=== PATIENT | female | born 1990 | race Hispanic/Latino ===

== ENCOUNTER 2020-03-06 18:49 | Emergency (ER) | payer OTHER, MEDICAID, SELFPAY ==
[2020-03-06] VITALS (7 sets, daily range): BP systolic 108–142; BP diastolic 60–82; PULSE 80–105; RESP 14–27; TEMP 37.3; O2SAT 98–100; BMI 27.7
--- NOTE | 2020-03-06 19:37 | ED_ITS ---
HPI - General Adult General Chief complaint: Abdominal Pain Stated complaint: RIGHT SIDE PAIN Time Seen by Provider: 03/06/20 19:00 Source: patient Mode of arrival: Ambulatory Limitations: no limitations History of Present Illness HPI narrative: 29-year-old female here for evaluation of right-sided adnexal pain. Patient states that approximately 2 weeks ago she started have menstrual bleeding in his bleeding daily basis since then. She has an inplanon in place since last year and has not had a menstrual cycle since then. He states that 4 days ago she started having heavier bleeding compared with the 10 days prior to that and at the same time started to have right-sided adnexal pain. Some nausea but no vomiting. No fevers. No urinary symptoms. No changes in bowel habits. No prior abdominal surgeries. Related Data Previous Rx's Medication Instructions Recorded doxycycline hyclate 100 mg PO BID #14 cap 04/21/16 hydrocodone-acetaminophen 0 tab PO Q4HP PRN #30 04/21/16 ibuprofen 600 mg PO Q6HP PRN #30 tab 04/21/16 metronidazole [Flagyl] 500 mg PO TID #30 tab 04/21/16 ciprofloxacin HCl [Cipro] 500 mg PO BID #20 tab 08/28/16 ondansetron [Zofran ODT] 4 mg SUBLINGUAL Q6HP PRN #20 odt 08/28/16 Allergies Allergy/AdvReac Type Severity Reaction Status Date / Time morphine [MORPHINE] Allergy Unknown ONE TIME Unverified 10/01/17 12:26 I FELT LIKE I COULDN'T BREATHE seafood Allergy Mild Uncoded 03/06/20 21:07 ACIDIC FRUITS Allergy Unknown Uncoded 10/01/17 12:26 Review of Systems Constitutional Constitutional: Denies fatigue and Denies fever(s) Cardiovascular Cardiovascular: Denies chest pain and Denies dyspnea Respiratory Respiratory: Denies dyspnea Gastrointestinal Gastrointestinal: Denies change in bowel habits, Reports nausea and Denies vomiting Genitourinary Genitourinary: Denies dysuria and Denies urinary hesitancy Genitourinary: Denies dysuria, Reports pelvic pain (Right-sided), Denies urinary hesitancy, Reports vaginal discharge (Bloody) and Denies vaginal dryness Musculoskeletal Musculoskeletal: Denies myalgias Integumentary/Breasts Skin/Breast: Denies rash Neurologic Neurologic: Denies behavioral changes Psychiatric Psychiatric: Denies behavioral changes Endocrine Endocrine: Denies fatigue Hematologic/Lymphatic Hematologic/Lymphatic: Denies easy bleeding and Denies easy bruising Allergic/Immunologic Allergic/Immunologic: Denies urticaria Patient History Medical History Bacterial vaginosis (Inactive) Pelvic inflammatory disease (Inactive) Pyelonephritis (Inactive) Urinary tract infection (Inactive) Surgical History (Updated 03/07/20 @ 02:30 by David Culver DO) History of cholecystectomy (Inactive) Social History Smoking Status: Former smoker Smoking Status: Former smoker Substance Use Type: does not use Exam Initial Vital Signs Initial Vital Signs: Vital Signs Pulse Rate 95 H 03/06/20 18:59 Respiratory Rate 19 03/06/20 18:59 Pulse Oximetry 99 03/06/20 18:59 Const General: cooperative and comfortable Limitations: mental status not altered HENMT Head: normal to inspection and normocephalic Resp Effort & Inspection: normal respiratory effort Cardio Rate: regular rate GI Inspection: non-distended Palpation: soft and tender (Right adnexa) External Female Exam: normal external appearance Speculum Exam - Vagina: vaginal bleeding Speculum Exam - Cervix: normal appearance of the cervix OB/External & Speculum: vaginal bleeding Skin Lesions: no lesions Rashes: no rashes Neuro General: patient alert and patient awake Cognition: normal cognition Speech: speech normal Extrem General: normal to inspection and capillary refill normal Psych Appearance: grossly normal and well kempt Course Orders Ordered: ED Orders 03/06/20 19:10 Complete Blood Count AUTO DIFF Stat Comprehensive Metabolic Panel Stat Lipase Stat Test Serum,Qual Stat 03/06/20 19:38 US pelvic complete Stat 03/06/20 21:45 Urinalysis and Microscopic Stat Discontinued Medications Sodium Chloride (Normal Saline 0.9%) 1,000 mls @ 1,000 mls/hr IV BOLUS ONE Stop: 03/06/20 20:52 Last Infusion: 03/06/20 21:07 Dose: 0 mls/hr Documented by: Admin: 03/06/20 20:01 Dose: 1,000 mls/hr Documented by: ALEYDA Ondansetron HCl (Zofran) 4 mg IV NOW ONE Stop: 03/06/20 20:58 Last Admin: 03/06/20 21:07 Dose: 4 mg Documented by: ALEYDA Vital Signs Vital signs: Vital Signs - 8 hr 03/06/20 18:59 03/06/20 19:00 03/06/20 19:21 Temperature 99.2 F Pulse Rate 95 H 105 H 96 H Respiratory Rate 19 20 14 Blood Pressure 142/82 H 129/81 Pulse Oximetry 99 99 99 03/06/20 19:30 03/06/20 20:00 03/06/20 20:30 Temperature Pulse Rate 83 90 80 Respiratory Rate 21 21 18 Blood Pressure 116/73 108/60 Pulse Oximetry 99 98 100 03/06/20 21:00 Temperature Pulse Rate 101 H Respiratory Rate 27 H Blood Pressure 119/71 Pulse Oximetry 100 Medical Decision Making Lab Data Lab results reviewed: Yes I reviewed the patient's lab results. Result diagrams: 03/06/20 19:10 03/06/20 19:10 Labs: Lab Results 03/06/20 03/06/20 03/06/20 Range/Units 19:10 19:10 19:10 WBC 7.9 (4.5-11.0) X10^3/uL RBC 4.72 (4.0-5.2) X10^6/uL Hgb 13.7 (12.0-16.0) g/dL Hct 39.5 (36-46) % MCV 83.8 (80-100) fL MCH 29.0 (26-34) PG MCHC 34.6 (30-36) % RDW 13.1 (11.6-14.8) % Plt Count 238 (150-400) X10^3/uL Neut % (Auto) 65.2 (50-75) % Lymph % (Auto) 28.2 (25-40) % [place] % (Auto) 5.0 (3-14) % Eos % (Auto) 1.3 L (2-4) % Baso % (Auto) 0.3 (0-2) % Neut # (Auto) 5100 (0418-5045) /uL Lymph # (Auto) 2200 (5664-1483) /uL Bladen # (Auto) 400 (0-900) /uL Eos # (Auto) 100 (0-450) /uL Baso # (Auto) 0 (0-100) /uL Sodium 141 (137-145) mmol/L Potassium 3.7 (3.4-5.1) mmol/L Chloride 106 (98-107) mmol/L Carbon Dioxide 23 (22-32) mmol/L BUN 16 (7-17) mg/dL Creatinine 0.62 (0.52-1.04) mg/dL Estimated GFR > 60.0 (>60) mL/min BUN/Creatinine Ratio 25.8 H (6-22) Glucose 86 (70-100) mg/dL Calcium 9.4 (8.4-10.2) mg/dL Total Bilirubin 0.8 (0.2-1.3) mg/dL AST 24 (14-36) IU/L ALT 16 (<35) IU/L Alkaline Phosphatase 62 (38-126) U/L Total Protein 8.2 (6.3-8.2) g/dL Albumin 4.6 (3.5-5.0) g/dL Globulin 3.6 (1.7-4.1) g/dL Albumin/Globulin Ratio 1.3 (1.0-2.8) Lipase 62 (23-300) U/L Serum , Qual Negative (Negative) Urine Color Urine Appearance Urine pH (4.5-8.0) Ur Specific [place] (1.000-1.035) Urine Protein (Negative) Urine Glucose (UA) (Negative) g/dL Urine Ketones (NEGATIVE) Urine Occult Blood (Negative) Urine Nitrate (Negative) Urine Bilirubin (NEGATIVE) Urine Urobilinogen (0.2) E.U./dL Ur Leukocyte Esterase (NEGATIVE) Urine RBC (0-5/HPF) Urine WBC (0-5/HPF) Ur Squamous Epith Cells (0-5/HPF) Urine Bacteria (None) Urine Mucus (Negative) Ur Culture Indicated? 03/06/20 Range/Units 21:45 WBC (4.5-11.0) X10^3/uL RBC (4.0-5.2) X10^6/uL Hgb (12.0-16.0) g/dL Hct (36-46) % MCV (80-100) fL MCH (26-34) PG MCHC (30-36) % RDW (11.6-14.8) % Plt Count (150-400) X10^3/uL Neut % (Auto) (50-75) % Lymph % (Auto) (25-40) % [place] % (Auto) (3-14) % Eos % (Auto) (2-4) % Baso % (Auto) (0-2) % Neut # (Auto) (7120-2541) /uL Lymph # (Auto) (2854-9181) /uL [place]aden # (Auto) (0-900) /uL Eos # (Auto) (0-450) /uL Baso # (Auto) (0-100) /uL Sodium (137-145) mmol/L Potassium (3.4-5.1) mmol/L Chloride (98-107) mmol/L Carbon Dioxide (22-32) mmol/L BUN (7-17) mg/dL Creatinine (0.52-1.04) mg/dL Estimated GFR (>60) mL/min BUN/Creatinine Ratio (6-22) Glucose (70-100) mg/dL Calcium (8.4-10.2) mg/dL Total Bilirubin (0.2-1.3) mg/dL AST (14-36) IU/L ALT (<35) IU/L Alkaline Phosphatase (38-126) U/L Total Protein (6.3-8.2) g/dL Albumin (3.5-5.0) g/dL Globulin (1.7-4.1) g/dL Albumin/Globulin Ratio (1.0-2.8) Lipase (23-300) U/L Serum , Qual (Negative) Urine Color Yellow Urine Appearance Clear Urine pH 5.5 (4.5-8.0) Ur Specific [place] 1.025 (1.000-1.035) Urine Protein Negative (Negative) Urine Glucose (UA) Negative (Negative) g/dL Urine Ketones 2+ H (NEGATIVE) Urine Occult Blood 3+ H (Negative) Urine Nitrate Negative (Negative) Urine Bilirubin Negative (NEGATIVE) Urine Urobilinogen 0.2 (0.2) E.U./dL Ur Leukocyte Esterase Negative (NEGATIVE) Urine RBC 1-5/hpf (0-5/HPF) Urine WBC None seen (0-5/HPF) Ur Squamous Epith Cells 1-5 /hpf (0-5/HPF) Urine Bacteria Few (2-10) H (None) Urine Mucus 1+ H (Negative) Ur Culture Indicated? 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 PROCEDURE: US PELVIC COMPLETE INDICATIONS: Right adnexal pain eval for ovarian pathology TECHNIQUE: Real-time scanning was performed of the pelvic organs, with image documentation. Additional endovaginal scanning was necessary due to incomplete visualization of the adnexal and endometrial structures by transabdominal scanning. COMPARISON: [facility], , PELVIC COMPLETE, 08/31/2013, 6:35. FINDINGS: Transabdominal scanning: Limited scanning through the kidneys shows no hydronephrosis. No pathologic free abdominal or pelvic fluid. Endovaginal scanning: Uterus: Uterus is normal in size at 7.8 x 3.6 x 4.9 cm. The endometrium measures 2 mm in combined thickness. Ovaries: Right ovary measures 3.2 x 1.2 x 2.1 cm. Left ovary measures 4.8 x 4.0 x 3.8 cm. There there are proximally for left-sided ovarian simple cysts with the largest measuring approximately 4.4 cm in diameter. There is vascular flow identified in the bilateral ovaries. No suspicious solid ovarian/adnexal mass lesions. IMPRESSION: 1. A simple appearing 4.4 cm left ovarian cyst. No sonographic evidence for ovarian torsion in either ovary. No suspicious ovarian or adnexal mass lesions. 2. Normal appearance of the uterus. Dictated by: Fabricio Perea M.D. on 03/06/2020 at 21:59 Approved by: Fabricio Perea M.D. on 03/06/2020 at 22:02 ECG Data Attestation: I personally reviewed and interpreted this ECG as follows: Prior ECG tracings: not available for review Interpretation: Sinus rhythm Ventricular rate 88 Normal axis Normal QRS Normal QTC No ST T wave changes MDM Narrative Medical decision making narrative: Patient does have a relatively benign exam. Her pelvic ultrasound shows no right-sided ovarian pathology. No signs of torsion. Patient states she is not concerned about any sexually transmitted infections. She states that she was concerned about the potential retained tampon. Pelvic exam does not reveal any retained tampon. She does have vaginal bleeding. Her right-sided abdominal pain his adnexal. Considered other etiologies such as appendicitis however I feel given her presentation that we should hold on CT scan for now. I did inform the patient of this. We did discuss return precautions. Will hold on antibiotics. From her that she should contact her primary doctor about potentially starting other oral hormone regulation medications to help with the vaginal bleeding that she is currently having. If she does return to the emergency department with continued pain at would consider performing a CT scan for further evaluation. Patient expressed understanding and agreement. Discharge Plan Departure Patient Disposition: Home Clinical Impression: Pelvic pain, Abnormal vaginal bleeding Discharge Date/Time: 03/06/20 23:37 Instructions: DI for Vaginal Bleeding Activity Restrictions/Additional Instructions: Recommend that tomorrow you contact your primary provider to schedule follow-up appointment to discuss with potentially changing her control medications. Until then return to the emergency department if you start getting lightheaded, chest pain, abdominal pain changes or worsens, fevers, or any other new or worsening symptoms Prescriptions: No Action doxycycline hyclate 100 MG capsule 100 mg PO BID Qty: 14 RF: 0 hydrocodone-acetaminophen 5 MG/325 MG tablet 0 tab PO Q4HP PRNQty: 30 RF: 0 ibuprofen 600 MG tablet 600 mg PO Q6HP PRNQty: 30 RF: 2 metronidazole [Flagyl] 500 MG tablet 500 mg PO TID Qty: 30 RF: 0 ciprofloxacin HCl [Cipro] 500 MG tablet 500 mg PO BID Qty: 20 RF: 0 ondansetron [Zofran ODT] 4 MG tablet,disintegrating 4 mg Sublingual Q6HP PRNQty: 20 RF: 0 Referrals: Chau Smith MD [Primary Care Provider] -
[2020-03-06 19:55] LABS: Add Manual Diff / Slide Review NO; Basophils Absolute Auto 0 /uL (0-100); Basophils Percent Auto 0.3 % (0-2); Eosinophils Absolute Auto 100 /uL (0-450); Eosinophils Percent Auto 1.3 % (2-4); Hematocrit 39.5 % (36-46); Hemoglobin 13.7 g/dL (12.0-16.0); Lymphocytes Absolute Auto 2200 /uL (1100-4500); Lymphocytes Percent Auto 28.2 % (25-40); Mean Corpuscular HGB Conc 34.6 % (30-36); Mean Corpuscular Volume 83.8 fL (80-100); Monocytes Absolute Auto 400 /uL (0-900); Neutrophils Absolute Auto 5100 /uL (1500-7000); Neutrophils Percent Auto 65.2 % (50-75); Platelet Count 238 X10^3/uL (150-400); Red Blood Cell Count 4.72 X10^6/uL (4.0-5.2); Red Cell Distribution Width 13.1 % (11.6-14.8); White Blood Cell Count 7.9 X10^3/uL (4.5-11.0)
[2020-03-06 20:00] LABS: Alanine Aminotransferase 16 IU/L (<35); Albumin 4.6 g/dL (3.5-5.0); Albumin Globulin Ratio 1.3 (1.0-2.8); Alkaline Phosphatase 62 U/L (38-126); Aspartate Aminotransferase 24 IU/L (14-36); BUN Creatinine Ratio 25.8 (6-22); Bilirubin Total 0.8 mg/dL (0.2-1.3); Blood Urea Nitrogen 16 mg/dL (7-17); Calcium 9.4 mg/dL (8.4-10.2); Carbon Dioxide 23 mmol/L (22-32); Chloride 106 mmol/L (98-107); Estimated Glomerular Filt Rate > 60.0 mL/min (>60); Globulin 3.6 g/dL (1.7-4.1); Glucose 86 mg/dL (70-100); HEMOLYSIS < 15 (0-50); Lipase 62 U/L (23-300); Potassium 3.7 mmol/L (3.4-5.1); Sodium 141 mmol/L (137-145); Total Protein 8.2 g/dL (6.3-8.2)
[2020-03-06] MEDS: SODIUM CHLORIDE 0.9% 1,000 ML 1000 ML IV (20:01)
[2020-03-06 20:07] LABS: Pregnancy Test Serum,Qual Negative (Negative)
[2020-03-06] MEDS: ONDANSETRON 4 MG/2 ML INJ IV (21:07)
[2020-03-06 22:36] LABS: WBC Urine None Seen (0-5/HPF)
[2020-03-06 22:48] LABS: Appearance Urine UA CLEAR; Bilirubin Urine UA NEGATIVE (NEGATIVE); Color Urine UA YELLOW; Glucose Urine UA NEGATIVE (Negative); Ketones Urine UA 2+ (NEGATIVE); Leukocyte Esterase Urine UA NEGATIVE (NEGATIVE); Nitrite Urine UA NEGATIVE (Negative); Occult Blood Urine UA 3+ (Negative); Protein Urine UA NEGATIVE (Negative); Specific Gravity Urine UA 1.025 (1.000-1.035); Urobilinogen Urine UA 0.2 E.U./dL (0.2)
[2020-03-06 22:50] LABS: pH Urine UA 5.5 (4.5-8.0)
[2020-03-06 23:05] LABS: Bacteria Urine Few (2-10); Mucus Urine 1+ (Negative); RBC Urine 1-5/HPF (0-5/HPF); Squamous Epithelial Cell Urine 1-5 /HPF (0-5/HPF)
[2020-03-06 23:06] LABS: Culture Indicated Urine Cult Not Indicated
== END 2020-03-06 23:37 | disposition home or self-care (01) ==
PROVIDERS: Emergency Provider Emergency Medicine; Family Provider Family Medicine; PCP Family Medicine
DX: R10.2 Pelvic and perineal pain (principal); N93.9 Abnormal uterine and vaginal bleeding, unspecified
CPT/HCPCS: 36415; 76856; 80053; 81001; 83690; 84703; 85025; 93005; 93010; 96361; 96374; 99284; J2405

== ENCOUNTER 2020-06-23 12:41 | Emergency (ER) | payer OTHER, MEDICAID, SELFPAY ==
[2020-06-23 12:44] VITALS: BP 120/68; PULSE 80; RESP 14; TEMP 36.7; O2SAT 99
--- NOTE | 2020-06-23 14:52 | PC.NURSE ---
Patient reports think tampon might be stuck in me, I can't see the string. Patient states put tampon in yesterday evening, but was drinking for New Years and can't remember if I took it out. Patient denies bleeding or pain.
--- NOTE | 2020-06-23 15:11 | ED_ITS ---
HPI - Female Genitourinary General Chief complaint: Vaginal Bleeding Stated complaint: Can't Find Tampon Time Seen by Provider: 06/23/20 14:45 Source: patient Mode of arrival: Ambulatory Limitations: no limitations History of Present Illness HPI Narrative: 29F former smoker with noncontributory medical history presents with a chief complaint of a concern that she may have left a tampon in. She has no symptoms whatsoever other than some mild, dark vaginal bleeding which is normal for her menstrual cycle. She denies any pain, discharge nor fever or chills. The last time she remembers changing a tampon was yesterday. She is unable to check herself because her fingernails or so long. She asked her to check he was unable to see anything. She is otherwise well and free of complaint MD Complaint: other Onset (ago): hour(s) Vaginal discharge: dark blood Patient : No Related Data Previous Rx's Medication Instructions Recorded doxycycline hyclate 100 mg PO BID #14 cap 04/21/16 hydrocodone-acetaminophen 0 tab PO Q4HP PRN #30 04/21/16 ibuprofen 600 mg PO Q6HP PRN #30 tab 04/21/16 metronidazole [Flagyl] 500 mg PO TID #30 tab 04/21/16 ciprofloxacin HCl [Cipro] 500 mg PO BID #20 tab 08/28/16 ondansetron [Zofran ODT] 4 mg SUBLINGUAL Q6HP PRN #20 odt 08/28/16 Allergies Allergy/AdvReac Type Severity Reaction Status Date / Time morphine [MORPHINE] Allergy Unknown ONE TIME Unverified 10/01/17 12:26 I FELT LIKE I COULDN'T BREATHE seafood Allergy Mild Uncoded 03/06/20 21:07 ACIDIC FRUITS Allergy Unknown Uncoded 10/01/17 12:26 Review of Systems Constitutional Constitutional: Denies chills, Denies fatigue, Denies fever(s), Denies frequent falls, Denies lethargy and Denies weakness Eyes Eyes: Denies change in vision, Denies eye discharge, Denies irritation and Denies loss of vision ENT Ears, Nose, Mouth, and Throat: Denies change in voice, Denies dizziness, Denies neck pain, Denies sore throat and Denies throat swelling Cardiovascular Cardiovascular: Denies chest pain, Denies irregular heart rhythm, Denies lightheadedness, Denies palpitations, Denies dyspnea, Denies dyspnea on exertion and Denies orthopnea Respiratory Respiratory: Denies cough, Denies dyspnea, Denies dyspnea on exertion and Denies wheezing Gastrointestinal Gastrointestinal: Denies abdominal pain, Denies change in bowel habits, Denies diarrhea, Denies nausea and Denies vomiting Genitourinary Comments: mild vaginal bleeding Musculoskeletal Musculoskeletal: Denies neck pain and Denies numbness Integumentary/Breasts Skin/Breast: Denies pruritus, Denies erythema, Denies rash and Denies wounds Neurologic Neurologic: Denies behavioral changes, Denies confusion, Denies dizziness, Denies frequent falls, Denies loss of vision, Denies numbness and Denies weakness Psychiatric Psychiatric: Denies anxiety, Denies behavioral changes, Denies confusion, Denies depression, Denies homicidal ideation and Denies suicidal ideation Endocrine Endocrine: Denies fatigue, Denies flushing and Denies palpitations Hematologic/Lymphatic Hematologic/Lymphatic: Denies easy bruising Allergic/Immunologic Allergic/Immunologic: Denies urticaria, Denies throat swelling and Denies wheezing Patient History Medical History Bacterial vaginosis Pelvic inflammatory disease Pyelonephritis Urinary tract infection Surgical History History of cholecystectomy alcohol intake frequency: 0-2 drinks per day Substance Use Type: does not use Exam Narrative Exam Narrative: GEN: AOx3 and in mild distress EYES: Pupils are equal, round, and reactive to light and accommodation. Extraoccular muscles are intact bilaterally. There is no subconjunctival hemorrhage or exudate. CHEST: Lungs are clear to auscultation bilaterally and free of wheezes, rales, o r rhonchi. Heart rate is regular rhythm, there are no murmurs, clicks, rubs, or gallops. There is no chest wall tenderness. ABD: Abdomen is soft and nontender. There is no guarding or rebound. Bowel sounds are normal in all 4 quadrants. There is no mass or organomegaly. PELVIC: no tampon or other FB noted. Mild dark bleeding from closed cervical os. 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 SKIN: Warm, pink, and dry. No erythema or rash Initial Vital Signs Initial Vital Signs: Vital Signs Temperature 98.1 F 06/23/20 12:44 Pulse Rate 80 06/23/20 12:44 Respiratory Rate 14 06/23/20 12:44 Blood Pressure 120/68 06/23/20 12:44 Pulse Oximetry 99 06/23/20 12:44 Course Vital Signs Vital signs: Vital Signs - 8 hr 06/23/20 12:44 Temperature 98.1 F Pulse Rate 80 Respiratory Rate 14 Blood Pressure 120/68 Pulse Oximetry 99 Discharge Plan Departure Patient Disposition: Home Clinical Impression: Vaginal bleeding, Feared complaint without diagnosis Instructions: DI for Vaginal Bleeding Activity Restrictions/Additional Instructions: *You have been diagnosed with [mild vaginal bleeding. Reassuring exam, no tampon noted] *What to do: *Take medications as directed *Follow up with your primary care provider in 2-3 days, call for an appointment. Let them know you were seen in the Emergency Department and that we ask that you be seen in follow up *Return to ER if you should have any new, worsening or concerning symptoms Prescriptions: No Action doxycycline hyclate 100 MG capsule 100 mg PO BID Qty: 14 RF: 0 hydrocodone-acetaminophen 5 MG/325 MG tablet 0 tab PO Q4HP PRNQty: 30 RF: 0 ibuprofen 600 MG tablet 600 mg PO Q6HP PRNQty: 30 RF: 2 metronidazole [Flagyl] 500 MG tablet 500 mg PO TID Qty: 30 RF: 0 ciprofloxacin HCl [Cipro] 500 MG tablet 500 mg PO BID Qty: 20 RF: 0 ondansetron [Zofran ODT] 4 MG tablet,disintegrating 4 mg Sublingual Q6HP PRNQty: 20 RF: 0
== END 2020-06-23 15:19 | disposition home or self-care (01) ==
PROVIDERS: Emergency Provider Emergency Medicine; Family Provider Family Medicine
DX: N93.9 Abnormal uterine and vaginal bleeding, unspecified (principal)
CPT/HCPCS: 99281

== ENCOUNTER 2021-03-11 13:17 | Emergency (ER) | payer OTHER, MEDICAID, SELFPAY ==
[2021-03-11 13:20] VITALS: BP 113/70; PULSE 95; RESP 18; TEMP 36.7; O2SAT 99
--- NOTE | 2021-03-11 13:31 | DI.US.S_ITS ---
PROCEDURE: US OB <= 14 WEEKS FETUS INDICATIONS: RIGHT ADNEXAL PAIN. EVALUATE FOR ECTOPIC. OUTSIDE/PRIOR DATING DATA: Last menstrual period (LMP): 01/16/2021 LMP-based estimated date of delivery (BRIT): 10/23/2021 First dating scan (date and location): 03/11/2021 at [facility] Estimated date of delivery (BRIT) from first dating scan: 10/29/2021 TECHNIQUE: Real-time scanning was performed of the fetus and maternal pelvic organs, with image documentation. Endovaginal scanning was also performed to better visualize the fetus and maternal ovaries. COMPARISON: None. FINDINGS: Embryo: Intrauterine gestational sac is seen with yolk sac and pole. The crown-rump length is 0.8 cm, consistent with an estimated gestational age of 6 weeks 6 days. Heart rate: 137 beats per minute. Measurement variability in dating: +/- 4 weeks by LMP, +/- 7 days by mean sac diameter (use before 6 weeks gestation if crown-rump length not able to be measured), +/- 5 days by crown-rump length (up to 8 weeks 6 days gestation), +/- 7 days by crown-rump length (up to 13 weeks 6 days gestation). Maternal organs: A left ovarian corpus luteum cyst is present. The right ovary is within normal limits. IMPRESSION: Single live intrauterine with estimated gestational age of 6 weeks 6 days. Dictated by: Angel Luis Godoy M.D. on 03/11/2021 at 15:02 Approved by: Angel Luis Godoy M.D. on 03/11/2021 at 15:04
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
[2021-03-11 13:53] LABS: Add Manual Diff / Slide Review NO; Basophils Absolute Auto 0 /uL (0-100); Basophils Percent Auto 0.4 % (0-2); Eosinophils Absolute Auto 100 /uL (0-450); Eosinophils Percent Auto 0.7 % (2-4); Hematocrit 34.6 % (36-46); Hemoglobin 11.8 g/dL (12.0-16.0); Lymphocytes Absolute Auto 1700 /uL (1100-4500); Lymphocytes Percent Auto 18.8 % (25-40); Mean Corpuscular HGB Conc 34.1 % (30-36); Mean Corpuscular Hemoglobin 28.8 PG (26-34); Mean Corpuscular Volume 84.5 fL (80-100); Monocytes Absolute Auto 400 /uL (0-900); Monocytes Percent Auto 4.2 % (3-14); Neutrophils Absolute Auto 6700 /uL (1500-7000); Neutrophils Percent Auto 75.9 % (50-75); Platelet Count 228 X10^3/uL (150-400); Red Blood Cell Count 4.09 X10^6/uL (4.0-5.2); Red Cell Distribution Width 12.6 % (11.6-14.8); White Blood Cell Count 8.9 X10^3/uL (4.5-11.0)
[2021-03-11 13:59] LABS: Alanine Aminotransferase 11 IU/L (<35); Albumin 4.1 g/dL (3.5-5.0); Albumin Globulin Ratio 1.3 (1.0-2.8); Alkaline Phosphatase 47 U/L (38-126); Aspartate Aminotransferase 20 IU/L (14-36); BUN Creatinine Ratio 23.5 (6-22); Bilirubin Total 0.4 mg/dL (0.2-1.3); Blood Urea Nitrogen 12 mg/dL (7-17); Calcium 9.1 mg/dL (8.4-10.2); Carbon Dioxide 25 mmol/L (22-32); Chloride 105 mmol/L (98-107); Estimated Glomerular Filt Rate > 60.0 mL/min (>60); Globulin 3.1 g/dL (1.7-4.1); Glucose 89 mg/dL (70-100); HEMOLYSIS < 15 (0-50); Lipase 48 U/L (23-300); Potassium 3.8 mmol/L (3.4-5.1); Sodium 136 mmol/L (137-145); Total Protein 7.2 g/dL (6.3-8.2)
[2021-03-11 14:01] VITALS: BP 112/71; PULSE 90; O2SAT 100
[2021-03-11 14:30] VITALS: PULSE 84; O2SAT 100
[2021-03-11 14:31] LABS: Bacteria Urine None Seen; RBC Urine 1-5/HPF (0-5/HPF); Squamous Epithelial Cell Urine 5-10 /HPF (0-5/HPF); WBC Urine None Seen (0-5/HPF)
[2021-03-11 14:40] LABS: HCG Quantitative /Beta subunit 62898 mIU/mL
--- NOTE | 2021-03-11 14:44 | ED.GENADULT ---
HPI - General Adult General Chief complaint: Abdominal Pain Stated complaint: pregnate,pain on right side and lower back Time Seen by Provider: 03/11/21 13:21 Source: patient Mode of arrival: Ambulatory History of Present Illness HPI narrative: Patient is a 30-year-old female. at unknown dates. Found out yesterday that she was . Has had approximately 2 days of right adnexa/right lower quadrant abdominal pain. No urinary symptoms. No vaginal bleeding. No constipation. No diarrhea. Has had her gallbladder out but no other abdominal surgeries. No fevers. No rashes. Has not tried anything for symptoms prior to arrival. Related Data Previous Rx's Medication Instructions Recorded vitamin 1 tab PO DAILY #30 tab 03/11/21 no.76-iron,carbonyl 29 mg iron-folic acid 1 mg tablet (PNV 29-1) Allergies Allergy/AdvReac Type Severity Reaction Status Date / Time morphine [MORPHINE] Allergy Unknown ONE TIME Verified 03/11/21 14:50 I FELT LIKE I COULDN'T BREATHE seafood Allergy Mild Uncoded 03/06/20 21:07 ACIDIC FRUITS Allergy Unknown Uncoded 10/01/17 12:26 Review of Systems Constitutional Constitutional: Denies fever(s) Cardiovascular Cardiovascular: Reports system reviewed and no additional complaints, except as documented Respiratory Respiratory: Reports system reviewed and no additional complaints, except as documented Gastrointestinal Gastrointestinal: Reports as per HPI and Reports system reviewed and no additional complaints, except as documented Genitourinary Genitourinary: Reports system reviewed and no additional complaints, except as documented, Reports as per HPI and Denies abnormal vaginal bleeding Musculoskeletal Musculoskeletal: Reports system reviewed and no additional complaints, except as documented and Reports back pain Integumentary/Breasts Skin/Breast: Reports system reviewed and no additional complaints, except as documented Psychiatric Psychiatric: Reports system reviewed and no additional complaints, except as documented Hematologic/Lymphatic On Anticoagulants: No Allergic/Immunologic Allergic/Immunologic: Reports system reviewed and no additional complaints, except as documented Patient History Medical History (Updated 03/11/21 @ 15:13 by David Culver DO) Bacterial vaginosis Pelvic inflammatory disease Pyelonephritis Urinary tract infection Surgical History History of cholecystectomy Social History Smoking Status: Former smoker Smoking Status: Former smoker alcohol intake frequency: 0-2 drinks per day Substance Use Type: does not use Exam Initial Vital Signs Initial Vital Signs: Vital Signs Temperature 98.0 F 03/11/21 13:20 Pulse Rate 95 H 03/11/21 13:20 Respiratory Rate 18 03/11/21 13:20 Blood Pressure 113/70 03/11/21 13:20 Pulse Oximetry 99 03/11/21 13:20 Const General: cooperative, healthy appearing and comfortable HENVT Head: normal to inspection and normocephalic Eyes General: appearance normal, both eyes and all related structures Resp Effort & Inspection: normal respiratory effort Auscultation: clear to auscultation bilaterally Cardio Rate: regular rate Rhythm: regular rhythm GI Inspection: normal to inspection and non-distended Palpation: soft, No firm and tender (Right adnexa) Other: Right adnexa pain external Back/Spine/Pelvis Back: CVA tenderness left Skin General: no rashes or lesions noted Neuro General: patient alert and patient awake Extrem General: capillary refill normal Psych Appearance: grossly normal and well kempt Course Orders Ordered: ED Orders 03/11/21 13:31 US OB <= 14 weeks fetus Stat 03/11/21 13:38 ABO RH Type Stat Complete Blood Count AUTO DIFF Stat Comprehensive Metabolic Panel Stat HCG Quantitative /Beta subunit Stat Lipase Stat 03/11/21 14:06 Urine Culture Stat Urine Microscopic Stat Vital Signs Vital signs: Vital Signs - 8 hr 03/11/21 13:20 Temperature 98.0 F Pulse Rate 95 H Respiratory Rate 18 Blood Pressure 113/70 Pulse Oximetry 99 Medical Decision Making Lab Data Lab results reviewed: Yes I reviewed the patient's lab results. Result diagrams: 03/11/21 13:38 03/11/21 13:38 Labs: Lab Results 03/11/21 03/11/21 03/11/21 Range/Units 13:38 13:38 13:38 WBC 8.9 (4.5-11.0) X10^3/uL RBC 4.09 (4.0-5.2) X10^6/uL Hgb 11.8 L (12.0-16.0) g/dL Hct 34.6 L (36-46) % MCV 84.5 (80-100) fL MCH 28.8 (26-34) PG MCHC 34.1 (30-36) % RDW 12.6 (11.6-14.8) % Plt Count 228 (150-400) X10^3/uL Neut % (Auto) 75.9 H (50-75) % Lymph % (Auto) 18.8 L (25-40) % [place] % (Auto) 4.2 (3-14) % Eos % (Auto) 0.7 L (2-4) % Baso % (Auto) 0.4 (0-2) % Neut # (Auto) 6700 (5956-0150) /uL Lymph # (Auto) 1700 (5063-5698) /uL [place] # (Auto) 400 (0-900) /uL Eos # (Auto) 100 (0-450) /uL Baso # (Auto) 0 (0-100) /uL Sodium 136 L (137-145) mmol/L Potassium 3.8 (3.4-5.1) mmol/L Chloride 105 (98-107) mmol/L Carbon Dioxide 25 (22-32) mmol/L BUN 12 (7-17) mg/dL Creatinine 0.51 L (0.52-1.04) mg/dL Estimated GFR > 60.0 (>60) mL/min BUN/Creatinine Ratio 23.5 H (6-22) Glucose 89 (70-100) mg/dL Calcium 9.1 (8.4-10.2) mg/dL Total Bilirubin 0.4 (0.2-1.3) mg/dL AST 20 (14-36) IU/L ALT 11 (<35) IU/L Alkaline Phosphatase 47 (38-126) U/L Total Protein 7.2 (6.3-8.2) g/dL Albumin 4.1 (3.5-5.0) g/dL Globulin 3.1 (1.7-4.1) g/dL Albumin/Globulin Ratio 1.3 (1.0-2.8) Lipase 48 (23-300) U/L HCG, Quant mIU/mL Urine RBC (0-5/HPF) Urine WBC (0-5/HPF) Ur Squamous Epith Cells (0-5/HPF) Urine Bacteria (None) Ur Culture Indicated? Blood Type A Positive 03/11/21 03/11/21 Range/Units 13:38 14:06 WBC (4.5-11.0) X10^3/uL RBC (4.0-5.2) X10^6/uL Hgb (12.0-16.0) g/dL Hct (36-46) % MCV (80-100) fL MCH (26-34) PG MCHC (30-36) % RDW (11.6-14.8) % Plt Count (150-400) X10^3/uL Neut % (Auto) (50-75) % Lymph % (Auto) (25-40) % [place] % (Auto) (3-14) % Eos % (Auto) (2-4) % Baso % (Auto) (0-2) % Neut # (Auto) (5790-5267) /uL Lymph # (Auto) (1297-5226) /uL [place] # (Auto) (0-900) /uL Eos # (Auto) (0-450) /uL Baso # (Auto) (0-100) /uL Sodium (137-145) mmol/L Potassium (3.4-5.1) mmol/L Chloride (98-107) mmol/L Carbon Dioxide (22-32) mmol/L BUN (7-17) mg/dL Creatinine (0.52-1.04) mg/dL Estimated GFR (>60) mL/min BUN/Creatinine Ratio (6-22) Glucose (70-100) mg/dL Calcium (8.4-10.2) mg/dL Total Bilirubin (0.2-1.3) mg/dL AST (14-36) IU/L ALT (<35) IU/L Alkaline Phosphatase (38-126) U/L Total Protein (6.3-8.2) g/dL Albumin (3.5-5.0) g/dL Globulin (1.7-4.1) g/dL Albumin/Globulin Ratio (1.0-2.8) Lipase (23-300) U/L HCG, Quant 54425 mIU/mL Urine RBC 1-5/hpf (0-5/HPF) Urine WBC None seen (0-5/HPF) Ur Squamous Epith Cells 5-10 /hpf H (0-5/HPF) Urine Bacteria None seen (None) Ur Culture Indicated? Culture not indicate Blood Type Urine Dip Bedside Urine Glucose Negative Bedside Urine Bilirubin - Negative Bedside Urine Ketone - Negative Urine Specific [place] 1.015 Bedside Urine Occult Blood ++ Bedside Urine pH 6.0 Bedside Urine Protein - Negative Bedside Urine Urobilinogen - Negative Bedside Urine Nitrite - Negative Bedside Urine Leukocytes - Negative Esterase Point of care testing: Urine Dip Bedside Urine Glucose Negative Bedside Urine Bilirubin - Negative Bedside Urine Ketone - Negative Urine Specific [place] 1.015 Bedside Urine Occult Blood ++ Bedside Urine pH 6.0 Bedside Urine Protein - Negative Bedside Urine Urobilinogen - Negative Bedside Urine Nitrite - Negative Bedside Urine Leukocytes - Negative Esterase Imaging Data US - OB: Radiologist's Impression: [address] [address] Ultrasound Report Signed Patient: Tessa Bowens MR#: [id number] : 1990 Acct:[id number] Age/Sex: 30 / F Date of Service: 03/11/21 Loc: Accession Number: [id number] ?? Procedure: US OB <= 14 weeks fetus Ordering Provider: David Culver D.O. PROCEDURE:? US OB <= 14 WEEKS FETUS ? INDICATIONS:? RIGHT ADNEXAL PAIN. EVALUATE FOR ECTOPIC. ? OUTSIDE/PRIOR DATING DATA:? Last menstrual period (LMP):? 01/16/2021 LMP-based estimated date of delivery (BRIT):? 10/23/2021 First dating scan (date and location):? 03/11/2021 at [facility] Estimated date of delivery (BRIT) from first dating scan:? 10/29/2021 ? TECHNIQUE:? Real-time scanning was performed of the fetus and maternal pelvic organs, with image documentation.? Endovaginal scanning was also performed to better visualize the fetus and maternal ovaries.? ? COMPARISON:? None. ? FINDINGS:? ? Embryo:? Intrauterine gestational sac is seen with yolk sac and pole.? The crown-rump length is 0.8 cm, consistent with an estimated gestational age of 6 weeks 6 days. Heart rate:? 137 beats per minute. ? Measurement variability in dating:? +/- 4 weeks by LMP, +/- 7 days by mean sac diameter (use before 6 weeks gestation if crown-rump length not able to be measured), +/- 5 days by crown-rump length (up to 8 weeks 6 days gestation), +/- 7 days by crown-rump length (up to 13 weeks 6 days gestation).? ? Maternal organs:? A left ovarian corpus luteum cyst is present.? The right ovary is within normal limits. ? ? IMPRESSION:? Single live intrauterine with estimated gestational age of 6 weeks 6 days. ? ? ? Dictated by: Angel Luis Godoy M.D. on 03/11/2021 at 15:02 ? ? Approved by: Angel Luis Godoy M.D. on 03/11/2021 at 15:04? MDM Narrative Medical decision making narrative: Patient has a benign abdominal exam. She is not having any vaginal bleeding. No discharge. Her right lower quadrant abdominal pain his clearly right adnexa. Ultrasound shows an intrauterine at 6 weeks and 6 days. No signs of ectopic . Right ovary is unremarkable. Patient is afebrile. No indication for antibiotics. Will hold on further workup for now. She was given return precautions and follow-up instructions. She expressed understanding and agreement plan. Discharge Plan Departure Patient Disposition: Home Clinical Impression: Abdominal pain, Instructions: DI for Abdominal Pain-Adult Activity Restrictions/Additional Instructions: Your ultrasound today does show a intrauterine that measures 6 weeks and 6 days. Recommend that you contact the provider at the information provided below to schedule a OB appointment. Start taking the vitamins as directed. Return to the emergency department for any new or worsening symptoms. Prescriptions: New PNV 29-1 29 mg iron- 1 mg tablet 1 tab PO DAILY Qty: 30 RF: 2 Referrals: Kaitlyn Collazo MD [Physician] -
[2021-03-11 15:00] VITALS: PULSE 86; O2SAT 100
[2021-03-11 15:21] VITALS: BP 112/71; PULSE 88; RESP 12; O2SAT 100
== END 2021-03-11 15:24 | disposition home or self-care (01) ==
PROVIDERS: Emergency Provider Emergency Medicine; Family Provider Family Medicine
DX: O26.91 Pregnancy related conditions, unspecified, first trimester (principal); R10.31 Right lower quadrant pain; Z3A.01 Less than 8 weeks gestation of pregnancy
CPT/HCPCS: 36415; 76801; 76817; 80053; 81003; 81015; 83690; 84702; 85025; 86900; 86901; 87086; 99284

== ENCOUNTER → 2021-05-28 11:14 | Outpatient (CLI) | payer OTHER, MEDICAID, SELFPAY ==
[2021-05-28 13:12] LABS: Add Manual Diff / Slide Review NO; Basophils Absolute Auto 0 /uL (0-100); Basophils Percent Auto 0.2 % (0-2); Eosinophils Absolute Auto 100 /uL (0-450); Eosinophils Percent Auto 0.9 % (2-4); Hematocrit 29.8 % (36-46); Hemoglobin 10.4 g/dL (12.0-16.0); Lymphocytes Absolute Auto 1200 /uL (1100-4500); Lymphocytes Percent Auto 14.5 % (25-40); Mean Corpuscular HGB Conc 34.8 % (30-36); Mean Corpuscular Hemoglobin 29.3 PG (26-34); Mean Corpuscular Volume 84.4 fL (80-100); Monocytes Absolute Auto 300 /uL (0-900); Monocytes Percent Auto 3.7 % (3-14); Neutrophils Absolute Auto 6800 /uL (1500-7000); Neutrophils Percent Auto 80.7 % (50-75); Platelet Count 228 X10^3/uL (150-400); Red Blood Cell Count 3.53 X10^6/uL (4.0-5.2); Red Cell Distribution Width 12.4 % (11.6-14.8); White Blood Cell Count 8.4 X10^3/uL (4.5-11.0)
[2021-05-28 14:32] LABS: Appearance Urine UA CLEAR; Bilirubin Urine UA NEGATIVE (NEGATIVE); Color Urine UA YELLOW; Glucose Urine UA NEGATIVE (Negative); Ketones Urine UA TRACE (NEGATIVE); Leukocyte Esterase Urine UA TRACE (NEGATIVE); Nitrite Urine UA POSITIVE (Negative); Occult Blood Urine UA 1+ (Negative); Protein Urine UA 1+ (Negative); Specific Gravity Urine UA 1.015 (1.000-1.035); Urobilinogen Urine UA 0.2 E.U./dL (0.2)
[2021-05-28 14:38] LABS: pH Urine UA 7.5 (4.5-8.0)
[2021-05-28 15:21] LABS: Bacteria Urine Moderate (10-30); RBC Urine 1-5/HPF (0-5/HPF); Squamous Epithelial Cell Urine 1-5 /HPF (0-5/HPF); WBC Urine 0-1/HPF (0-5/HPF)
[2021-05-28 15:22] LABS: Mucus Urine 2+ (Negative)
[2021-05-28 17:50] LABS: Hepatitis B Surface Antigen NEGATIVE s/c (NEGATIVE); Rubella Antibody IgG 5.8 IU/mL (>15)
[2021-05-28 18:17] LABS: HIV 1 & 2 Ab/Ag 4th Gen Combo NEGATIVE (NEGATIVE); Hep C Virus Ab w/Reflex Quant NEGATIVE s/c (NEGATIVE)
[2021-05-29 09:45] LABS: RPR Screen Non Reactive (Non Reactive)
[2021-05-29 15:43] LABS: HSV 2 IGG AB 4.94 index (0.00-0.90)
== END ==
PROVIDERS: Family Provider Family Medicine; Referring Provider Obstetrics & Gynecology; Visit Provider Obstetrics & Gynecology
DX: Z36.0 Encounter for antenatal screening for chromosomal anomalies (principal); G80.8 Other cerebral palsy; Z34.82 Encounter for supervision of other normal pregnancy, second trimester
CPT/HCPCS: 36415; 80055; 81003; 81015; 86695; 86696; 86787; 86803; 87086; 87389

== ENCOUNTER → 2021-06-11 09:43 | Outpatient (CLI) | payer OTHER, MEDICAID, SELFPAY ==
--- NOTE | 2021-06-11 09:44 | DI.US.S_ITS ---
PROCEDURE: US OB >= 14 WEEKS FETUS INDICATIONS: 20 WEEK ANATOMY OUTSIDE/PRIOR DATING DATA: Last menstrual period (LMP): 01/16/2021 LMP-based estimated date of delivery (BRIT): 10/23/2021. First dating scan (date and location): 03/11/2021. Estimated date of delivery (BRIT) from first dating scan: 10/29/2021. The calculations are made using the ultrasound BRIT of 10/29/2021. TECHNIQUE: Real-time scanning was performed of the fetus, with image documentation and biometric measurements. COMPARISON: [facility], , US OB <= 14 WEEKS FETUS, 03/11/2021, 14:25. [facility], , US OB >= 14 WEEKS FETUS, 05/28/2021, 10:42. FINDINGS: General: A single living intrauterine gestation is present. Presentation: Transverse. Placenta: Placental position is posterior , without previa. Amniotic fluid index: 11.8 cm, normal range is 5-24 cm. heart rate: 152 beats per minute. Maternal cervical canal: 3.4 cm long. Normal lower limit is 2.5 cm. biometrics: Biparietal diameter: 20 weeks 6 days Head circumference: 20 weeks 0 days Abdominal circumference: 21 weeks 1 day Femur length: 21 weeks 1 day Estimated gestational ag by prior ultrasound : 20 weeks 0 days Composite gestational age from present scan: 20 weeks 6 days Estimated weight and percentile: 393 g; 93rd percentile Anatomic survey: Neuro: Ventricles are non-dilated at less than 10 mm. Cisterna magna is normal at 3-11 mm. Cerebellum is normal in size and morphology. Nuchal skin fold: Normal at less than 6 mm between 14-21 weeks gestational age. Face: Nose and lips, facial profile are normal. Spine: No evidence for spina bifida. Heart: 4-chambered heart is present, with normal ventricular outflow tracts. Diaphragm: Diaphragm is intact. Stomach: Left-sided stomach is present. Kidneys: No hydronephrosis. Normal is less than 5 mm in 2nd trimester, less than 7 mm in 3rd trimester. Cord: 3-vessel cord has orthotopic insertion. Bladder: Normal in size. Extremities: All 4 extremities identified. IMPRESSION: 1. Single living IUP redemonstrated and interval growth is upper limits of normal with estimated weight 93rd percentile. 2. Normal anatomic survey. We strive to produce accurate, complete, and clear reports of imaging services. To assist us in improving patient care, this report was composed using standard report templates and voice recognition software. Therefore, it may contain abnormal punctuation, insertions and/or omissions. Occasional wrong-word or sound-alike substitutions may occur. Though we review the report and make efforts to correct it, we do recommend that the report be read carefully in proper context to recognize any text inaccuracies. Dictated by: Sachin Suarez [facility] Interpreted: Jeronimo Lopez MD on 06/11/2021 at 10:44 Transcribed by: ELANA on 06/11/2021 at 11:02 Approved by: Jeronimo Lopez M.D. on 06/11/2021 at 11:50
== END ==
PROVIDERS: Family Provider Family Medicine; Referring Provider Obstetrics & Gynecology; Visit Provider Obstetrics & Gynecology
DX: Z34.82 Encounter for supervision of other normal pregnancy, second trimester (principal); Z3A.21 21 weeks gestation of pregnancy
CPT/HCPCS: 76811

== ENCOUNTER → 2021-08-15 10:49 | Outpatient (CLI) | payer OTHER, MEDICAID, SELFPAY ==
[2021-08-15 13:18] LABS: Hematocrit 31.8 % (36-46); Hemoglobin 10.6 g/dL (12.0-16.0)
[2021-08-15 13:37] LABS: GTT (PREG) 1 Hour PP 50gm Dose 98 mg/dL (76-139)
== END ==
PROVIDERS: Family Provider Family Medicine; Referring Provider Obstetrics & Gynecology; Visit Provider Obstetrics & Gynecology
DX: Z34.82 Encounter for supervision of other normal pregnancy, second trimester (principal); Z3A.25 25 weeks gestation of pregnancy
CPT/HCPCS: 36415; 82950; 85014; 85018

== ENCOUNTER 2021-09-18 13:32 | Observation (INO) | payer OTHER, MEDICAID, SELFPAY ==
[2021-09-18 14:53] LABS: Appearance Urine UA CLEAR; Bilirubin Urine UA NEGATIVE (NEGATIVE); Color Urine UA YELLOW; Glucose Urine UA TRACE g/dL (Negative); Ketones Urine UA NEGATIVE (NEGATIVE); Leukocyte Esterase Urine UA NEGATIVE (NEGATIVE); Nitrite Urine UA NEGATIVE (Negative); Occult Blood Urine UA 3+ (Negative); Protein Urine UA TRACE (Negative); Specific Gravity Urine UA 1.015 (1.000-1.035); Urobilinogen Urine UA 0.2 E.U./dL (0.2)
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
[2021-09-18 15:18] LABS: Bacteria Urine None Seen; Culture Indicated Urine Cult Not Indicated; Mucus Urine 1+ (Negative); RBC Urine 1-5/HPF (0-5/HPF); Squamous Epithelial Cell Urine 1-5 /HPF (0-5/HPF); WBC Urine 1-5/HPF (0-5/HPF)
[2021-09-18] MEDS: CALCIUM CARBONATE 500 MG TAB PO (15:46)
[2021-09-18] MEDS: ACETAMINOPHEN 325 MG TABLET 650 MG PO (15:46)
[2021-09-18 16:36] LABS: Add Manual Diff / Slide Review NO; Basophils Absolute Auto 0 /uL (0-100); Basophils Percent Auto 0.2 % (0-2); Eosinophils Absolute Auto 100 /uL (0-450); Eosinophils Percent Auto 0.6 % (2-4); Hematocrit 27.9 % (36-46); Hemoglobin 9.6 g/dL (12.0-16.0); Lymphocytes Absolute Auto 1400 /uL (1100-4500); Lymphocytes Percent Auto 12.9 % (25-40); Mean Corpuscular HGB Conc 34.3 % (30-36); Mean Corpuscular Hemoglobin 28.1 PG (26-34); Mean Corpuscular Volume 81.8 fL (80-100); Monocytes Absolute Auto 500 /uL (0-900); Monocytes Percent Auto 4.7 % (3-14); Neutrophils Absolute Auto 9100 /uL (1500-7000); Neutrophils Percent Auto 81.6 % (50-75); Platelet Count 216 X10^3/uL (150-400); Red Blood Cell Count 3.41 X10^6/uL (4.0-5.2); Red Cell Distribution Width 13.2 % (11.6-14.8); White Blood Cell Count 11.2 X10^3/uL (4.5-11.0)
[2021-09-18 16:56] LABS: Alanine Aminotransferase 11 IU/L (<35); Albumin 3.3 g/dL (3.5-5.0); Alkaline Phosphatase 144 U/L (38-126); Amylase 70 U/L (30-110); Aspartate Aminotransferase 19 IU/L (14-36); BUN Creatinine Ratio 20.4 (6-22); Bilirubin Total 0.4 mg/dL (0.2-1.3); Blood Urea Nitrogen 11 mg/dL (7-17); Calcium 8.6 mg/dL (8.4-10.2); Carbon Dioxide 24 mmol/L (22-32); Chloride 105 mmol/L (98-107); Estimated Glomerular Filt Rate > 60.0 mL/min (>60); Globulin 3.4 g/dL (1.7-4.1); Glucose 93 mg/dL (70-100); HEMOLYSIS < 15 (0-50); Lipase 51 U/L (23-300); Potassium 3.9 mmol/L (3.4-5.1); Sodium 134 mmol/L (137-145); Total Protein 6.7 g/dL (6.3-8.2)
== END 2021-09-18 16:35 | disposition home or self-care (01) ==
PROVIDERS: Admitting Provider Obstetrics & Gynecology; Family Provider Family Medicine; Referring Provider Obstetrics & Gynecology; Visit Provider Obstetrics & Gynecology
DX: O36.8330 Maternal care for abnormalities of the fetal heart rate or rhythm, third trimester, not applicable or unspecified (principal); O47.03 False labor before 37 completed weeks of gestation, third trimester; Z3A.34 34 weeks gestation of pregnancy
CPT/HCPCS: 36415; 59025; 59050; 80053; 81001; 82150; 83690; 85025; 87086; G0378; G0379

== ENCOUNTER → 2021-10-16 11:54 | Outpatient (CLI) | payer OTHER, MEDICAID, SELFPAY ==
[2021-10-17 07:33] LABS: Strep Grp B PCR POS for Grp B Strep
== END ==
PROVIDERS: Family Provider Family Medicine; Visit Provider Obstetrics & Gynecology
DX: Z36.85 Encounter for antenatal screening for Streptococcus B (principal); Z3A.36 36 weeks gestation of pregnancy
CPT/HCPCS: 87653

== ENCOUNTER 2021-10-22 22:05 | Outpatient (CLI) | payer OTHER, MEDICAID, SELFPAY ==
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
[2021-10-22] MEDS: MORPHINE 10 MG/ML INJ IM (23:31)
[2021-10-22] MEDS: hydrOXYzine 50 MG/ML INJ 25 MG IM (23:32)
[2021-10-22 23:43] LABS: Protein (Total) Urine Random 129 mg/dL (0-12)
[2021-10-23 00:07] LABS: Appearance Urine UA CLEAR; Bilirubin Urine UA NEGATIVE (NEGATIVE); Color Urine UA YELLOW; Glucose Urine UA NEGATIVE (Negative); Ketones Urine UA NEGATIVE (NEGATIVE); Leukocyte Esterase Urine UA TRACE (NEGATIVE); Nitrite Urine UA NEGATIVE (Negative); Occult Blood Urine UA 3+ (Negative); Protein Urine UA 2+ (Negative); Specific Gravity Urine UA 1.015 (1.000-1.035)
[2021-10-23 00:08] LABS: Bacteria Urine Few (2-10); Culture Indicated Urine Specimen Cultured; Mucus Urine 1+ (Negative); RBC Urine 5-10/HPF (0-5/HPF); Squamous Epithelial Cell Urine 1-5 /HPF (0-5/HPF); WBC Urine 0-1/HPF (0-5/HPF); pH Urine UA 6.5 (4.5-8.0)
== END 2021-10-23 00:05 | disposition home or self-care (01) ==
LOC: LABOR 22:11 → OB 10-25 07:32
PROVIDERS: Family Provider Family Medicine; Referring Provider Obstetrics & Gynecology; Visit Provider Obstetrics & Gynecology
DX: O47.1 False labor at or after 37 completed weeks of gestation (principal); O26.853 Spotting complicating pregnancy, third trimester; Z3A.39 39 weeks gestation of pregnancy
CPT/HCPCS: 59025; 81001; 84156; 87086; 96372; G0378; G0379; J2270; J3410

== ENCOUNTER 2021-10-26 04:21 | Inpatient (IN) | payer OTHER, MEDICAID, SELFPAY ==
[2021-10-26 06:22] VITALS: BP 126/68
[2021-10-26 06:35] LABS: COVID19 - ADMIT (NP swab/PCR) Negative (Negative)
[2021-10-26] MEDS: CEFAZOLIN 2 GM/20 ML SYRINGE IV (06:40)
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
[2021-10-26 07:03] LABS: Add Manual Diff / Slide Review NO; Basophils Absolute Auto 0 /uL (0-100); Basophils Percent Auto 0.3 % (0-2); Eosinophils Absolute Auto 100 /uL (0-450); Eosinophils Percent Auto 1.3 % (2-4); Hematocrit 28.4 % (36-46); Hemoglobin 9.7 g/dL (12.0-16.0); Lymphocytes Absolute Auto 2000 /uL (1100-4500); Lymphocytes Percent Auto 19.4 % (25-40); Mean Corpuscular HGB Conc 34.3 % (30-36); Mean Corpuscular Hemoglobin 27.8 PG (26-34); Mean Corpuscular Volume 81.2 fL (80-100); Monocytes Absolute Auto 400 /uL (0-900); Monocytes Percent Auto 4.4 % (3-14); Neutrophils Absolute Auto 7500 /uL (1500-7000); Neutrophils Percent Auto 74.6 % (50-75); Platelet Count 217 X10^3/uL (150-400); White Blood Cell Count 10.1 X10^3/uL (4.5-11.0)
--- NOTE | 2021-10-26 07:10 | PM.PREOP ---
Pre-operative Note COVID-19 COVID-19 status: Negative Result date/Date tested (Pos, Neg/Pending): 10/26/21 Interval Note History & Physical reviewed/Exam performed by Physician: Yes Changes to H&P: No
--- NOTE | 2021-10-26 08:52 | PM.OBCS.1 ---
Operative Date/Time/Diagnoses Date of procedure: 10/26/21 Time of procedure: 07:50 Pre-op diagnosis: desires elective primary section, early labor Post-op diagnosis: same Procedure & Clinicians Procedure: primary section Same procedure as scheduled: Yes Indications: desires elective primary c section, PROM, early labor Surgeon: Raquel Merchant Informatica Architect: Mariajose Jang Reason for Informatica Architect: assistance with retraction, delivery of the infant, suturing Anesthesia Type: Spinal Operative Notes Findings: Male in cephalic presentation, apgars 8+8. weight 7#9. Normal uterus, tubes and ovaries. Closure Type: primary Specimen(s): cord blood Intraoperative meds administered: Pitocin Applied: Catheter Estimated Blood Loss (mL): 750 Procedure in detail: EBL: 750ccs Fluids:2300ccs LR UOP: 900ccs clear yellow urine Procedures: The patient was taken to the operating room where spinal anesthesia was placed and found to be adequate. She was prepped and draped in the normal sterile fashion in the dorsal supine position with a leftward tilt. A Pfannenstiel skin incision was made with a scalpel and carried through to the underlying layer of fascia. The fascia was incised in the midline and the incision extended laterally with Esquivel scissors. The superior aspect of this incision was grasped with Elsa clamps, elevated, and the underlying rectus muscles dissected off bluntly and with the curved Esquivel scissors. Attention was then turned to the inferior aspect of this incision which, in a similar fashion, was grasped, tented up with the Elsa clamps, and the rectus muscles dissected off bluntly and with the curved Esquivel scissors. The rectus muscles were then in the midline, and the peritoneum identified, tented up, and entered sharply with Metzenbaum scissors. The peritoneal incision was extended superiorly and inferiorly with good visualization of the bladder. The bladder blade was inserted and the vesicouterine peritoneum identified, grasped with pickups, and entered sharply with the Metzenbaum scissors. This incision was extended laterally, and the bladder flap created digitally. The bladder blade was then reinserted and the lower uterine segment incised in transverse fashion with the scalpel. The uterine incision was bluntly extended laterally. The bladder blade was removed, and the infant's head delivered atraumatically with assistance of a vacuum. After 45 seconds of delayed cord clamping, the cord was clamped and cut. The nose and mouth were suctioned as needed with a bulb syringe, and the was handed off to awaiting pediatricians. The placenta was then removed spontaneously, and the uterus was exteriorized and cleared of all clots and debris. The uterine incision was repaired with 0 chromic in a running, locked fashion and a 2nd layer of the same suture was used to obtain excellent hemostasis. The uterus was returned to the abdomen, and the gutters were cleared of all clots and debris. The bladder flap was closed with 2-0 Vicryl in a running fashion, the peritoneum was closed with 3-0 Vicryl, and the fascia reapproximated with 0 Vicryl in a running fashion. The subcutaneous layer was placed with 3 0 Vicryl in an interrupted fashion and the skin was closed with 4-0 biosyn in a running fashion. The patient tolerated the procedure well. sponge lap and needle counts were correct x2. 2 g of Ancef and 500mg azithromycin were given at commencement of the case. The patient was taken to the recovery room in stable condition. Complications: none [place] Baby 1: Gender: Male Presentation: vertex Position: Left Occiput Anterior Placental Delivery Description: Manual Removal Cord Vessel Description: 3 Vessels score (1 min): 8 score (5 min): 8 weight: 7 lb 8 oz Post-operative Condition: stable Disposition: PACU Aftercare: routine postop
[2021-10-26] MEDS: ACETAMINOPHEN 325 MG TABLET 650 MG PO ×2 (12:05→19:53)
[2021-10-26] MEDS: KETOROLAC 30 MG/ML VIAL IV ×2 (15:15→21:07)
[2021-10-26] MEDS: LACTATED RINGERS 1,000 ML 100 ML IV (19:52)
[2021-10-26] MEDS: OXYCODONE IR 10 MG TABLET PO ×2 (19:52→23:57)
[2021-10-27] MEDS: ONDANSETRON 4 MG/2 ML INJ IV ×2 (01:44→08:39)
[2021-10-27] MEDS: KETOROLAC 30 MG/ML VIAL IV (02:53)
[2021-10-27] MEDS: ACETAMINOPHEN 325 MG TABLET 650 MG PO ×3 (02:53→21:20)
[2021-10-27] MEDS: OXYCODONE IR 10 MG TABLET PO ×3 (04:00→23:06)
[2021-10-27 07:09] LABS: Add Manual Diff / Slide Review NO; Basophils Absolute Auto 0 /uL (0-100); Basophils Percent Auto 0.3 % (0-2); Eosinophils Absolute Auto 100 /uL (0-450); Eosinophils Percent Auto 1.4 % (2-4); Hematocrit 23.8 % (36-46); Hemoglobin 8.1 g/dL (12.0-16.0); Lymphocytes Absolute Auto 1700 /uL (1100-4500); Lymphocytes Percent Auto 23.4 % (25-40); Mean Corpuscular HGB Conc 34.1 % (30-36); Mean Corpuscular Volume 82.1 fL (80-100); Monocytes Absolute Auto 400 /uL (0-900); Neutrophils Absolute Auto 5100 /uL (1500-7000); Neutrophils Percent Auto 69.9 % (50-75); Platelet Count 155 X10^3/uL (150-400); Red Cell Distribution Width 13.7 % (11.6-14.8); White Blood Cell Count 7.3 X10^3/uL (4.5-11.0)
[2021-10-27] MEDS: DOCUSATE 100 MG CAPSULE 200 MG PO (08:39)
[2021-10-27] MEDS: valACYclovir 500 MG TABLET PO (08:40)
[2021-10-27] MEDS: IBUPROFEN 600 MG TABLET PO ×3 (10:10→23:07)
--- NOTE | 2021-10-27 12:46 | P.PNOB_ITS ---
Subjective - OB Subjective Patient comments: incisional pain and tolerating diet baby status: doing well Narrative: This patient is POD#1 s/p elective primary section. The patient is ambulating, voiding, passing flatus, tolerating PO, and has mild lochia. The patient reports improving pain control on PO medications but has gas to pass, encouraged to ambulate, eat, chew gum. Date Patient Seen: 10/27/21 Time Patient Seen: 12:47 Exam Vital Signs (past 8 hours): 08/65, HR 79 Const General: cooperative, healthy appearing, comfortable and well groomed Resp Effort & Inspection: normal respiratory effort Auscultation: clear to auscultation bilaterally Cardio Rate: regular rate Rhythm: regular rhythm GI Inspection: other (fundus firm, well below u. Incision c/d/i, bandage with old blood.) Palpation: soft and No tender Objective Labs Result Diagrams: 10/27/21 06:45 Labs: Laboratory Results - last 24 hr 10/27/21 06:45 WBC 7.3 RBC 2.90 L Hgb 8.1 L Hct 23.8 L MCV 82.1 MCH 28.0 MCHC 34.1 RDW 13.7 Plt Count 155 Neut % (Auto) 69.9 Lymph % (Auto) 23.4 L [place] % (Auto) 5.0 Eos % (Auto) 1.4 L Baso % (Auto) 0.3 Neut # (Auto) 5100 Lymph # (Auto) 1700 [place] # (Auto) 400 Eos # (Auto) 100 Baso # (Auto) 0 Assessment & Plan Plan day: 1 plan OB: routine postop care Time Spent With Patient Time: Total time spent is greater than 50% in coordination of care (as documented) at patient's floor/unit and/or counseling patient: Time with patient: 15-24 minutes
[2021-10-27] MEDS: ONDANSETRON 4 MG ODT 8 MG PO (16:29)
[2021-10-27] MEDS: OXYCODONE IR 5 MG TABLET PO (18:10)
[2021-10-27] MEDS: hydrOXYzine pamoate 25 MG CAPSULE 50 MG PO (19:10)
[2021-10-27] MEDS: SIMETHICONE 80 MG TABLET PO (19:10)
[2021-10-27 19:28] LABS: Add Manual Diff / Slide Review NO; Basophils Absolute Auto 100 /uL (0-100); Basophils Percent Auto 1.2 % (0-2); Eosinophils Absolute Auto 100 /uL (0-450); Eosinophils Percent Auto 1.4 % (2-4); Hematocrit 24.5 % (36-46); Hemoglobin 8.4 g/dL (12.0-16.0); Lymphocytes Absolute Auto 1300 /uL (1100-4500); Lymphocytes Percent Auto 15.3 % (25-40); Mean Corpuscular HGB Conc 34.1 % (30-36); Mean Corpuscular Hemoglobin 27.9 PG (26-34); Mean Corpuscular Volume 81.7 fL (80-100); Monocytes Absolute Auto 300 /uL (0-900); Monocytes Percent Auto 3.8 % (3-14); Neutrophils Absolute Auto 6600 /uL (1500-7000); Neutrophils Percent Auto 78.3 % (50-75); Platelet Count 185 X10^3/uL (150-400); Red Cell Distribution Width 13.5 % (11.6-14.8); White Blood Cell Count 8.4 X10^3/uL (4.5-11.0)
[2021-10-28] MEDS: ACETAMINOPHEN 325 MG TABLET 650 MG PO (03:49)
[2021-10-28] MEDS: OXYCODONE IR 5 MG TABLET PO (03:50)
[2021-10-28] MEDS: IBUPROFEN 600 MG TABLET PO (09:00)
[2021-10-28] MEDS: valACYclovir 500 MG TABLET PO (09:01)
[2021-10-28] MEDS: SIMETHICONE 80 MG TABLET PO (09:02)
[2021-10-28] MEDS: DOCUSATE 100 MG CAPSULE 200 MG PO (09:02)
--- NOTE | 2021-10-28 10:03 | P.DS_ITS ---
Discharge Providers Provider Date of admission: 10/26/21 04:21 Discharge Date: 10/28/21 Primary care physician: Doctor Gerald MD Consults: 10/26/21 10:40 Consult to Security Auditor Routine Comment: Discharge provider: Raquel Merchant MD Summary Hospital Course Date Patient Seen: 10/28/21 Time Patient Seen: 10:03 Diagnoses: primary section Hospital Course: This patient was admitted in early labor after SROM, the day of her scheduled primary section due to a traumatic 1st delivery. She was taken for primary section. Her intraoperative and postoperative course were uncomplicated, and she was discharged home on POD#2 with routine precautions and follow up. Peripartum Data Infant Delivery Method: Section complications: none [place] 1: Gender: Male Disposition of : home Status at Discharge Cognitive/behavioral status at discharge: oriented Functional status at discharge: independent ambulation Overall status at discharge: patient is progressing back to baseline Time Spent with Patient Time attestation: Total time spent providing and/or coordinating discharge services: Objective Labs Result Diagrams: 10/27/21 19:10 Labs: Laboratory Results - last 24 hr 10/27/21 19:10 WBC 8.4 RBC 3.00 L Hgb 8.4 L Hct 24.5 L MCV 81.7 MCH 27.9 MCHC 34.1 RDW 13.5 Plt Count 185 Neut % (Auto) 78.3 H Lymph % (Auto) 15.3 L [place] % (Auto) 3.8 Eos % (Auto) 1.4 L Baso % (Auto) 1.2 Neut # (Auto) 6600 Lymph # (Auto) 1300 [place] # (Auto) 300 Eos # (Auto) 100 Baso # (Auto) 100 Exam Vital Signs (past 8 hours): 127/76, HR 81, afebrile Narrative Exam Narrative: Patient feeling well today, improved pain control on PO medications. Ambulating, tolerating PO, passing flatus, mild lochia, voiding. No PIH symptoms. Const General: cooperative, healthy appearing, comfortable and well groomed Resp Effort & Inspection: normal respiratory effort Auscultation: clear to auscultation bilaterally Cardio Rate: regular rate Rhythm: regular rhythm GI Palpation: soft and No tender Other: Old blood on dressing. Fundus firm, below u Extrem General: normal to inspection Discharge Plan Discharge Plan Patient Disposition: Home Discharge orders & Medications Prescriptions: New oxycodone 5 mg tablet 5 mg PO Q6H PRN (Reason: pain) Qty: 30 0RF Rx Instructions: Take as often as every 6 hours for pain. acetaminophen [Tylenol] 325 mg tablet 650 mg PO Q6H PRN (Reason: pain) Qty: 30 0RF Rx Instructions: Take as often as every 6 hours for pain. ibuprofen 600 mg tablet 600 mg PO Q6H PRN (Reason: pain) Qty: 30 0RF Rx Instructions: Take as often as every 6 hours for pain. docusate sodium [Colace] 100 mg capsule 100 mg PO BID Qty: 30 0RF Rx Instructions: Take twice daily for constipation. Continued PNV 29-1 29 mg iron- 1 mg tablet 1 tab PO DAILY Qty: 30 2RF valacyclovir [Valtrex] 500 mg tablet 500 mg PO DAILY Qty: 30 2RF Rx Instructions: Take once daily until 6 weeks . Follow up/Referrals: Raquel Merchant MD [Physician] - 1 Week (postop check) Diet/Activity/Treatments Diet: Regular Activity: Nothing in the vagina for 6 weeks. No lifting more than 10 pounds for 6 weeks. If you have worsening bleeding, fevers, chills, nausea, vomiting, headache, visual changes, or any other symptoms or concerns, call or come to the emergency room. Skin/Wound/Dressing Care Report to your healthcare provider any signs of infection, such as:: chills, f ever, night sweats, increased pain, unusual drainage and unusual redness Dressing: OK to shower. Pat area over dressing dry. Visit Report/Discharge Packet Instructions: DI for Discharge Data Primary Care Provider: Miscellaneous,Doctor
[2021-10-28] MEDS: MEASLES,MUMPS,RUBELLA VACC/PF 0.5 ML VIAL SUBCUT (11:04)
== END 2021-10-28 12:20 | disposition home or self-care (01) | DRG 540 ==
PROVIDERS: Obstetrics & Gynecology; Admitting Provider Family Medicine; Family Provider Family Medicine; Referring Provider Family Medicine; Visit Provider Family Medicine
DX: O42.02 Full-term premature rupture of membranes, onset of labor within 24 hours of rupture (principal); Z3A.39 39 weeks gestation of pregnancy; Z37.0 Single live birth; O99.824 Streptococcus B carrier state complicating childbirth; O98.52 Other viral diseases complicating childbirth; B00.9 Herpesviral infection, unspecified; Z20.822 Contact with and (suspected) exposure to COVID-19
CPT/HCPCS: 36415; 59050; 59514; 85025; 86850; 86900; 86901; 87635; C9803; G0379; J0690; J1885; J2274; J2405; J2590; J3010

== ENCOUNTER 2023-08-06 15:59 | Emergency (ER) | payer OTHER, MEDICAID, SELFPAY ==
[2023-08-06 16:06] VITALS: BP 107/64; PULSE 97; RESP 16; TEMP 37; O2SAT 99; BMI 29.0
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
[2023-08-06] MEDS: AMOXICILLIN/CLAV 875/125 MG 1 TAB PO (18:52)
[2023-08-06] MEDS: ACETAMINOPHEN 325 MG TABLET 650 MG PO (18:52)
[2023-08-06] MEDS: DOXYCYCLINE HYCLATE 100 MG TABLET PO (18:53)
[2023-08-06 19:02] VITALS: BP 117/53; PULSE 86; RESP 18; O2SAT 99
== END 2023-08-06 19:36 | disposition home or self-care (01) ==
PROVIDERS: Emergency Provider Student in an Organized Health Care Education/Training Program; Family Provider Family Medicine; PCP Family Medicine
DX: L03.116 Cellulitis of left lower limb (principal); L02.416 Cutaneous abscess of left lower limb
CPT/HCPCS: 87070; 87075; 87077; 87147; 87186; 87205; 99283